=== PATIENT | male | born 1995 ===

== ENCOUNTER 2021-07-29 12:14 | Emergency (ER) | payer OTHER, SELFPAY ==
[2021-07-29 12:23] VITALS: BP 157/97; PULSE 70; RESP 16; TEMP 36.7; O2SAT 100
--- NOTE | 2021-07-29 12:52 | ED.URI ---
HPI - URI/Sore Throat General Chief Complaint: Upper Respiratory Infection Stated Complaint: sore throat/congestion Time Seen by Provider: 07/29/21 12:52 Source: patient and family Mode of arrival: ambulatory Limitations: no limitations History of Present Illness HPI Narrative: Bruce is a 25-year-old male patient who ambulated into the [facility]. Patient has a 2-day history of sore throat, stuffy nose,, and not feeling well. Patient has been taking Motrin and TheraFlu without much relief. Patient states he is able to drink and eat with minimal difficulty. MD elicited complaint: sore throat Related Data Allergies Allergy/AdvReac Type Severity Reaction Status Date / Time No Known Allergies Allergy Unknown Unverified 04/23/15 13:37 Review of Systems Review of Systems: CONSTITUTIONAL: Denies body aches, fever, chills, or sweats. EYES: Denies visual changes, redness, or discharge. ENT: Denies rhinorrhea,+ congestion,+ sore throat, denies otalgia. CARDIOVASCULAR: Denies chest pain, palpitations, or edema. RESPIRATORY: Denies cough or dyspnea. GASTROINTESTINAL: Denies abdominal pain, nausea, vomiting, or diarrhea. GENITOURINARY: Denies dysuria or hematuria. SKIN: Denies rash, itching, or wounds. MUSCULOSKELETAL: Denies back pain, joint pain, or myalgia. NEUROLOGIC: Denies headache, numbness, tingling, or weakness. PSYCH: Denies depression or anxiety. All systems reviewed & are unremarkable except as noted in HPI and below PMFSH Comments At time of signature, I have reviewed and agree with nursing past medical, surgical, social and family history unless otherwise noted. Please see nursing chart for further information. There is no relevant family history pertinent to the presenting complaint Exam Narrative: GENERAL: Well-appearing, well-nourished, and in no acute distress. HEAD: Normocephalic, atraumatic. EYES: EOMI. No redness or drainage. Conjunctivae normal. ENT: Mucous membranes pink and moist. Nasal membranes erythematous. Tympanic membranes are dull bilaterally with minimal fluid. Posterior pharynx is erythemic with moderate edema no exudate. Left tonsil is larger than right. Uvula midline. NECK: Normal AROM. Supple. Left anterior cervical lymphadenopathy. CHEST: No respiratory distress. Clear to auscultation. MUSCULOSKELETAL: No bony tenderness. EXTREMITIES: Normal range of motion. No edema. SKIN: Warm, dry, no rash. Capillary refill normal. Normal skin turgor. NEURO: No focal deficits. Alert and oriented x3. Gait steady. PSYCH: Normal affect. No signs of depression or anxiety. Course Vital Signs Vital signs: Vital Signs Temperature 36.7 C 07/29/21 12:23 Pulse Rate 70 07/29/21 12:23 Respiratory Rate 16 07/29/21 12:23 Blood Pressure 157/97 H 07/29/21 12:23 Pulse Oximetry 100 07/29/21 12:23 Temperature 36.7 C 07/29/21 12:23 Pulse Rate 70 07/29/21 12:23 Respiratory Rate 16 07/29/21 12:23 Blood Pressure 157/97 H 07/29/21 12:23 Pulse Oximetry 100 07/29/21 12:23 MDM - URI/Sore Throat MDM Narrative Medical decision making narrative: Patient's rapid strep test is negative. Throat culture will be sent to lab patient will be notified if antibiotics are needed. Patient does have moderate amount of swelling to bilateral tonsils left greater than right. Prednisone will be prescribed for the next 5 days. Patient will continue to continue to use TheraFlu and Motrin. Patient may use Cepacol lozenges for relief. Patient was instructed to increase his fluids and not become dehydrated. Patient will follow up with his primary care physician in 3 to 5 days. Differential Diagnosis Differential diagnosis: Likely upper respiratory infection, otitis media, viral infection and pharyngitis Lab Data Attestation: I reviewed the patient's lab results. Labs: Strep Screen Presumptive Negative *(Reference Range: Negative)* Cri
== END 2021-07-29 13:06 | disposition home or self-care (01) ==
PROVIDERS: Emergency Provider Nurse Practitioner Family
DX: J02.9 Acute pharyngitis, unspecified (principal)
CPT/HCPCS: 87081; 87880; 99213; G0463

== ENCOUNTER 2024-08-22 10:16 | Emergency (ER) | payer SELFPAY ==
[2024-08-22 10:33] VITALS: BP 164/98; PULSE 78; RESP 16; TEMP 37; O2SAT 99
--- NOTE | 2024-08-22 10:56 | ED.EAR ---
HPI - Ear Problem General Chief complaint: Ear Stated complaint: congestion,sore throat,cough, sore ears Time Seen by Provider: 08/22/24 10:56 Source: patient Mode of arrival: ambulatory Limitations: no limitations History of Present Illness HPI Narrative: 29-year-old male presents with complaint of nasal and sinus congestion, sinus pressure, postnasal drainage, sore throat and cough for 10 days. Reports congestion getting progressively worse. Has felt feverish with chills and sweating the last few days. All systems reviewed and negative except as noted above. Related Data Allergies Allergy/AdvReac Type Severity Reaction Status Date / Time No Known Allergies Allergy Unknown Verified 08/22/24 10:19 Review of Systems Review of Systems: CONSTITUTIONAL: Denies fever . reports fatigue. EYES: Denies visual changes, redness, or discharge. ENT: Reports rhinorrhea, congestion, sinus pressure, sore throat. Denies otalgia. CARDIOVASCULAR: Denies chest pain, palpitations, or edema. RESPIRATORY: Reports cough. Denies dyspnea. GASTROINTESTINAL: Denies abdominal pain, nausea, vomiting, or diarrhea. GENITOURINARY: Denies dysuria or hematuria. SKIN: Denies rash or itching. MUSCULOSKELETAL: Denies back pain, joint pain, or myalgia. NEUROLOGIC: Denies headache, numbness, or weakness. PSYCHIATRIC: Denies anxiety or depression. All other systems reviewed are negative, except as documented in HPI. PMFSH Comments At time of signature, agree with nursing past medical, surgical, social and family history. There is no relevant family history pertinent to the presenting complaint. Exam Narrative: GENERAL: This is a well-nourished, well-developed patient, in no apparent distress. HEAD: normocephalic, atraumatic. EYES: PERRL. Sclera clear/white. Vision is grossly intact. EARS: External ears normal, auditory canals clear and without drainage, TMs normal without perforation. Hearing grossly intact. NOSE: External nose normal with congestion, erythema and swelling to bilateral nares, maxillary sinus tenderness on palpation THROAT: Mucous membranes moist, erythema, postnasal drainage, tonsils 2+ bilateral with exudates NECK: Neck supple, non-tender without lymphadenopathy, masses or thyromegaly. CARDIOVASCULAR: Regular rate and rhythm without murmurs, gallops, or rubs. RESPIRATORY: Clear to auscultation. Breath sounds equal bilaterally. No wheezes, rales, or rhonchi. SKIN: warm, Dry, intact with no suspicious lesions or rash, good texture and turgor. NEURO: awake, alert, and oriented to person, place and time. There were no obvious focal neurologic abnormalities. EXTREMITIES: No joint tenderness, effusion, or edema noted. Course Course Level of Care: Express Care Visit Vital Signs Vital signs: Vital Signs Temperature 37.0 C 08/22/24 10:33 Pulse Rate 78 08/22/24 10:33 Respiratory Rate 16 08/22/24 10:33 Blood Pressure 164/98 H 08/22/24 10:33 Pulse Oximetry 99 08/22/24 10:33 Oxygen Delivery Room Air 08/22/24 10:33 Temperature 37.0 C 08/22/24 10:33 Pulse Rate 78 08/22/24 10:33 Respiratory Rate 16 08/22/24 10:33 Blood Pressure 164/98 H 08/22/24 10:33 Pulse Oximetry 99 08/22/24 10:33 Oxygen Delivery Room Air 08/22/24 10:33 reviewed Medical Decision Making MDM Narrative Medical decision making narrative: negative strep. Will treat patient with antibiotic for bacterial sinusitis due to duration of symptoms and exam findings. Patient is nontoxic. Patient is aware of diagnosis, understands and agrees to treatment plan. Anticipatory guidance given. Patient agrees to follow-up as directed and is aware of reasons to seek care at the emergency department. Portions of this record may have been created with voice recognition software Vital Signs Vital Signs: Vital Signs Temperature 37.0 C 08/22/24 10:33 Pulse Rate 78 08/22/24 10:33 Respiratory Rate 16 08/22/24 10:33 Blood Pressure 164/98 H 08/22/24 10:33 Pulse Oximetry 99 08/22/24 10:33 Oxygen Delivery Room Air 08/22/24 10:33 Temperature 37.0 C 08/22/24 10:33 Pulse Rate 78 08/22/24 10:33 Respiratory Rate 16 08/22/24 10:33 Blood Pressure 164/98 H 08/22/24 10:33 Pulse Oximetry 99 08/22/24 10:33 Oxygen Delivery Room Air 08/22/24 10:33 Lab Data Labs: Lab Results 08/22/24 Range/Units 11:15 POC Grp A Strep Screen Negative (Negative) Discharge Plan Discharge Clinical Impression: Acute bacterial sinusitis, Acute tonsillitis Patient Disposition: Home, Self-Care Condition: Stable Instructions: Antibiotic Form, Sinusitis (ED) Additional Instructions: your strep test was negative today. Take medications as prescribed. Continue taking [id number] medication to treat her symptoms such as DayQuil NyQuil cold and Sinus. Drink at least 64 oz of water a day. Follow-up with your primary care physician if symptoms are not improving. Prescriptions: New prednisone 20 mg tablet 40 mg PO DAILY 5 Days Qty: 10 0RF amoxicillin 875 mg tablet 875 mg PO Q12H 7 Days Qty: 14 0RF fluticasone propionate [Flonase Allergy Relief] 50 mcg/actuation spray,suspension 1 spray intranasal BID Qty: 16 0RF Rx Instructions: administer into each nostril Follow-up/Referrals: PHYSICIAN,REGIONAL TRAINER [Primary Care Provider] - Stand Alone Forms: Work/School Release IP Time of Disposition: 11:15
[2024-08-22 11:17] LABS: EDSTREPNEGPOS1 Negative (Negative)
== END 2024-08-22 11:20 | disposition home or self-care (01) ==
PROVIDERS: Emergency Provider Nurse Practitioner Family
DX: J01.90 Acute sinusitis, unspecified (principal); J03.90 Acute tonsillitis, unspecified
CPT/HCPCS: 87081; 87880; 99213; G0463